=== PATIENT | male | born 1925 | race Caucasian/White ===

== ENCOUNTER → 2016-06-24 | Outpatient (CLI) | payer MEDICARE, BC | LOC: WCC 10:30 | DX: I87.8 Other specified disorders of veins (principal); L97.513 Non-pressure chronic ulcer of other part of right foot with necrosis of muscle | CPT/HCPCS: 13919; 13973; 17717; A6199; A6212; G0463 ==

== ENCOUNTER → 2016-07-14 | Outpatient (CLI) | payer MEDICARE, BC | LOC: WCC 07-07 12:03 | DX: L97.524 Non-pressure chronic ulcer of other part of left foot with necrosis of bone (principal); I87.8 Other specified disorders of veins | CPT/HCPCS: 17717; 27510; A6197; A6212; G0463 ==

== ENCOUNTER → 2016-07-23 | Outpatient (CLI) | payer MEDICARE, BC | LOC: WCC 10:18 | DX: I87.8 Other specified disorders of veins (principal); L97.519 Non-pressure chronic ulcer of other part of right foot with unspecified severity; M81.0 Age-related osteoporosis without current pathological fracture; M62.81 Muscle weakness (generalized) | CPT/HCPCS: 17717; 27510; A6197; A6212; G0463 ==